=== PATIENT | female | born 1960 | race Caucasian/White ===

== ENCOUNTER 2016-07-14 06:46 | Emergency (ER) | payer BC ==
--- NOTE | 2016-07-14 06:59 | EDM.PDOC ---
ED HPI GENERAL MEDICAL PROBLEM - General Chief Complaint: General Stated Complaint: WEAK Time Seen by Provider: 07/14/16 06:59 Source of Information: Reports: Patient History Limitations: Reports: No limitations - History of Present Illness INITIAL COMMENTS - FREE TEXT/NARRATIVE: 55-year-old female attends the ED with diffuse muscle to her pain and weakness. She states she's been progressively getting worse over the last 2 weeks. This morning she went to take a PT out of the microwave essentially could hardly get her hand to work normally on the right side. She did not she did not drop teacup. She reports her proximal muscles or worse than her distal muscles. Pituitary size hips and shoulders. She cannot walk normally up the stairs. She be very careful where she sits so that she can get back of a sofa or a easy chair at such a. She reports she's "one bag ache" she had labs drawn last week at [facility] for rheumatoid arthritis and her thyroid gland function and therefore they will not be repeated today. She does not have any true active synovitis of her joints other than pain in her right knee where she has had previous surgery apparently an x-ray of the knee revealed degenerative changes. She walks is more slowly than normal. Occasional headache. Started Paroxitine on Thursday last week 10 mg once daily for possible depression. She doesn't Mrs. need for any worse in terms being lightheaded or dizzy. Her appetite remains fair her weight is stable. Onset: gradual Onset Date: 06/29/16 Duration: Week(s): (Gradually getting worse over the last 2 weeks.) Location: Reports: generalized Quality: Reports: Ache (Generalized myalgia.), Other (Weakness) Severity: moderate Improves with: Reports: None Worsens with: Reports: Movement Context: Denies: Activity, Exercise, Lifting, Sick contact, Trauma, Other Associated Symptoms: Reports: malaise, weakness. Denies: no other symptoms, confusion, chest pain, cough, cough w sputum, diaphoresis, fever/chills, headaches, loss of appetite, nausea/vomiting, rash, seizure, shortness of breath , syncope Treatments SYSTEMS ARCHITECT: Reports: Other (see below) - Related Data Allergies Allergy/AdvReac Type Severity Reaction Status Date / Time No Known Allergies Allergy Verified 07/14/16 06:57 Home Meds: Home Meds Levothyroxine Sodium [Synthroid] 125 mcg PO DAILY #30 tablet 07/14/16 [Rx] Levothyroxine [Synthroid] 88 mcg PO ACBREAKFAST 07/14/16 [History] Meloxicam 15 mg PO DAILY #12 tablet 07/14/16 [Rx] PARoxetine [Paxil] 10 mg PO DAILY 07/14/16 [History] Past Medical History Endocrine/Metabolic History: Reports: Hypothyroidism (Currently on 88 mcg of Synthroid replacement hormone daily.) - Past Surgical History Female Surgical History: Reports: Tubal ligation Social & Family History - Living Situation & Occupation Living situation: Reports: Occupation: employed ED ROS GENERAL - Review of Systems Review Of Systems: See Below Constitutional: Reports: malaise, weakness, fatigue. Denies: fever, chills, weight loss HEENT: Reports: No symptoms Respiratory: Reports: Cough (Chronic smokers cough.) Cardiovascular: Reports: Blood pressure problem, Dyspnea on exertion (States he please note easy.). Denies: Chest pain, Claudication, Edema, Lightheadedness, Orthopnea Endocrine: Reports: fatigue GI/Abdominal: Denies: Abdominal pain, Anorexia, Black stool, Bloody stool, Constipation, Diarrhea, Decreased appetite, Difficulty swallowing, Distension, Flatus, Hematemesis, Hematochezia, Melena : Reports: no symptoms Musculoskeletal: Reports: muscle pain (Generalized myalgia.), muscle stiffness Skin: Reports: no symptoms Neurological: Reports: Dizziness (Occasional) Psychiatric: Reports: Depression (Some signs and symptoms of depression.) Hematologic/Lymphatic: Reports: no symptoms Immunologic: Reports: no symptoms ( Some are more loose related to the waist feeling.) ED EXAM, GENERAL - Physical Exam Exam: See Below Exam Limited By: No limitations General Appearance: alert, WD/WN, no apparent distress Eye Exam: bilateral eye: normal inspection Ears: normal TMs Throat/Mouth: Normal inspection, Normal lips, Normal oropharynx Head: atraumatic, normocephalic Neck: normal inspection, supple, non-tender, full range of motion. No: carotid bruit, lymphadenopathy (L), lymphadenopathy (R), thyromegaly Respiratory/Chest: no respiratory distress, lungs clear, normal breath sounds, no accessory muscle use Cardiovascular: normal peripheral pulses, regular rate, rhythm, no edema, no gallop, no murmur Back Exam: normal inspection, decreased range of motion. No: CVA tenderness (L) , CVA tenderness (R) Extremities: normal inspection, normal range of motion, normal capillary refill , other Neurological: alert, oriented, CN II-XII intact, normal cognition Psychiatric: normal affect, normal mood Skin Exam: Warm, Dry, Intact, Normal color, No rash Course - Vital Signs Last Recorded V/S: Last Vital Signs Temp 36.4 C 07/14/16 06:54 Pulse 90 07/14/16 06:54 Resp 18 07/14/16 06:54 BP 152/97 H 07/14/16 06:54 Pulse Ox 97 07/14/16 06:54 - Orders/Labs/Meds Labs: Laboratory Tests 07/14/16 07/14/16 07/14/16 Range/Units 07:28 07:28 07:28 WBC 6.36 (3.98-10.04) K/mm3 RBC 4.45 (3.98-5.22) M/mm3 Hgb 13.9 (11.2-15.7) gm/L Hct 41.4 (34.1-44.9) % MCV 93.0 (79.4-94.8) fl MCH 31.2 (25.6-32.2) pg MCHC 33.6 (32.2-35.5) g/dl RDW Std Deviation 46.5 H (36.4-46.3) fL Plt Count 295 (182-369) K/mm3 MPV 9.8 (9.4-12.3) fl Neutrophils % (Manual) 47 (40-60) % Band Neutrophils % 0 (0-10) % Lymphocytes % (Manual) 45 H (20-40) % Atypical Lymphs % 0 % Monocytes % (Manual) 4 (2-10) % Eosinophils % (Manual) 4 (0.7-5.8) % Basophils % (Manual) 0 L (0.1-1.2) Platelet Estimate Adequate RBC Morph Comment Normal ESR 22 H (0-20) mm/hr Sodium 140 (136-145) mEq/L Potassium 4.3 (3.5-5.1) mEq/L Chloride 106 (98-107) mEq/L Carbon Dioxide 23 (21-32) mEq/L Anion Gap 15.3 H (5-15) BUN 23 H (7-18) mg/dL Creatinine 0.7 (0.55-1.02) mg/dL Est Cr Clr Drug Dosing 86.01 mL/min Estimated GFR (MDRD) > 60 (>60) mL/min BUN/Creatinine Ratio 32.9 H (14-18) Glucose 98 (74-106) mg/dL Calcium 8.9 (8.5-10.1) mg/dL Ionized Calcium 1.20 (1.12-1.32) mmol/L Magnesium 1.9 (1.8-2.4) mg/dl Total Bilirubin 0.2 (0.2-1.0) mg/dL AST 11 L (15-37) U/L ALT 19 (14-59) U/L Alkaline Phosphatase 66 (46-116) U/L Creatine Kinase 32 (26-192) U/L C-Reactive Protein 0.3 (<1.0) mg/dL Total Protein 7.2 (6.4-8.2) g/dl Albumin 3.7 (3.4-5.0) g/dl Globulin 3.5 gm/dL Albumin/Globulin Ratio 1.1 (1-2) TSH 3rd Generation (0.358-3.74) uIU/mL Urine Color (Yellow) Urine Appearance (Clear) Urine pH (5.0-8.0) Ur Specific [place] (1.005-1.030) Urine Protein (Negative) Urine Glucose (UA) (Negative) Urine Ketones (Negative) Urine Occult Blood (Negative) Urine Nitrite (Negative) Urine Bilirubin (Negative) Urine Urobilinogen (0.2-1.0) Ur Leukocyte Esterase (Negative) Urine RBC (0-5) /hpf Urine WBC (0-5) /hpf Ur Squamous Epith Cells (0-5) /hpf Urine Bacteria (FEW) /hpf Urine Mucus (FEW) /hpf 07/14/16 07/14/16 Range/Units 07:28 07:55 WBC (3.98-10.04) K/mm3 RBC (3.98-5.22) M/mm3 Hgb (11.2-15.7) gm/L Hct (34.1-44.9) % MCV (79.4-94.8) fl MCH (25.6-32.2) pg MCHC (32.2-35.5) g/dl RDW Std Deviation (36.4-46.3) fL Plt Count (182-369) K/mm3 MPV (9.4-12.3) fl Neutrophils % (Manual) (40-60) % Band Neutrophils % (0-10) % Lymphocytes % (Manual) (20-40) % Atypical Lymphs % % Monocytes % (Manual) (2-10) % Eosinophils % (Manual) (0.7-5.8) % Basophils % (Manual) (0.1-1.2) Platelet Estimate RBC Morph Comment ESR (0-20) mm/hr Sodium (136-145) mEq/L Potassium (3.5-5.1) mEq/L Chloride (98-107) mEq/L Carbon Dioxide (21-32) mEq/L Anion Gap (5-15) BUN (7-18) mg/dL Creatinine (0.55-1.02) mg/dL Est Cr Clr Drug Dosing mL/min Estimated GFR (MDRD) (>60) mL/min BUN/Creatinine Ratio (14-18) Glucose (74-106) mg/dL Calcium (8.5-10.1) mg/dL Ionized Calcium (1.12-1.32) mmol/L Magnesium (1.8-2.4) mg/dl Total Bilirubin (0.2-1.0) mg/dL AST (15-37) U/L ALT (14-59) U/L Alkaline Phosphatase (46-116) U/L Creatine Kinase (26-192) U/L C-Reactive Protein (<1.0) mg/dL Total Protein (6.4-8.2) g/dl Albumin (3.4-5.0) g/dl Globulin gm/dL Albumin/Globulin Ratio (1-2) TSH 3rd Generation 4.352 H (0.358-3.74) uIU/mL Urine Color Yellow (Yellow) Urine Appearance Clear (Clear) Urine pH 5.5 (5.0-8.0) Ur Specific [place] > or = 1.030 (1.005-1.030) Urine Protein Negative (Negative) Urine Glucose (UA) Negative (Negative) Urine Ketones Negative (Negative) Urine Occult Blood Trace-lysed H (Negative) Urine Nitrite Negative (Negative) Urine Bilirubin Negative (Negative) Urine Urobilinogen 0.2 (0.2-1.0) Ur Leukocyte Esterase Negative (Negative) Urine RBC 5-10 H (0-5) /hpf Urine WBC 0-5 (0-5) /hpf Ur Squamous Epith Cells 0-5 (0-5) /hpf Urine Bacteria Rare (FEW) /hpf Urine Mucus Not seen (FEW) /hpf - Radiology Interpretation Free Text/Narrative:: 55-year-old female presents the ED for evaluation of generalized weakness and myalgia has been gradually getting worse over the last 2 weeks. She has no true active synovitis of any of her joints. Aching pain in the proximal muscles more so than the distal muscles suggesting polymyalgia component. She noticed particular weakness of her right hand this morning while trying to take a cup of tea out of the microwave. Examination reveals full range of motion of all 4 limbs but tenderness to palpation of the deep musculature the quadriceps and deltoids. Neuro exam is normal. No rashes were evident to suggest dermatomyositis. Plan routine labs with the addition of a total CPK , TSH, and sedimentation rate and CRP. - Re-Assessments/Exams Free Text/Narrative Re-Assessment/Exam: 07/14/16 08:31 labs are back. White count is normal at 6.36 with a 47% count no bands. Hemoglobin 13.9 hematocrit 41.4 is 295,000. Sedimentation rate returned at 22. Chemistry shows sodium 140 potassium of 4.3 chloride 16 bicarbonate of 23. Anion gap is 15.3 BUN is mildly elevated at 23 ionized calcium is 1.20. His CA TSH is mildly elevated at 4.352. Plan I will increase her thyroid supplement to 25 mcg Departure - Departure Time of Disposition: 08:40 Disposition: Home, Self-Care 01 Condition: fair Clinical Impression: Polymyalgia, Hypothyroidism Fatigue Qualifiers: Fatigue type: unspecified Qualified Code(s): R53.83 - Other fatigue Prescriptions: Levothyroxine Sodium [Synthroid] 125 mcg PO DAILY #30 tablet Meloxicam 15 mg PO DAILY #12 tablet Forms: ED Department Discharge Additional Instructions: Evaluation in the emergency room today in regards to generalized aches and pains but particularly noted weakness and pain in the proximal muscles(upper legs thighs and shoulders.) Lab work was done to see if there was any convincing evidence ,laboratory kline ,of polymyalgia rheumatica. Normal CPK and a sedimentation rate of only 22 are against this diagnosis. However lab work did identify that the thyroid gland supplementation is not adequate at this time. TSH today was 4.35 and on supplementation it should be around 1.5-2. Therefore I advise increasing your thyroid hormone supplement Synthroid to 125 mcg daily. You are currently on 88 mcg tablets and you can take one half of those daily until they are gone and then fill the prescription for the 125 mcg dosage. A followup TSH should be done in about 8 weeks' time to make sure that it is getting down to around the 2.0 level. I'm also going to add anti- inflammatory meloxicam 15 mg once daily for the next 12 days to relieve pain and inflammation in your muscles until the thyroid replacement medication becomes more therapeutic. If after 2-3 weeks of increased thyroid medication you 're not feeling any better I would give some thought to a short course of prednisone to see if it made a difference in terms of relieving inflammation in her proximal muscles. Also of course followup with her normal care provider in regards to the labs that were drawn last week looking for connective tissue inflammation.
[2016-07-14 09:49] VITALS: BP 142/88
== END 2016-07-14 08:55 | disposition home or self-care (01) ==
LOC: JD.ED 06:46
DX: M35.3 Polymyalgia rheumatica (principal); E03.9 Hypothyroidism, unspecified; R53.83 Other fatigue; Z79.899 Other long term (current) drug therapy; Z98.51 Tubal ligation status
CPT/HCPCS: 36415; 80053; 81001; 82330; 82550; 83735; 84443; 85025; 85652; 86140; 99284; 99285

== ENCOUNTER 2018-01-07 06:37 | Emergency (ER) | payer BC ==
[2018-01-07 06:45] VITALS: BP 150/95
[2018-01-07] MEDS ORDERED: Ondansetron 4 MG/2 ML SDV IVPUSH ONE (06:59)
[2018-01-07] MEDS ORDERED: Sodium Chloride 0.9% 10 ML Syringe FLUSH PRN ×2 (06:59→08:03)
[2018-01-07] MEDS ORDERED: Sodium Chloride 0.9% 1,000 ML IV STA (06:59)
[2018-01-07] MEDS ORDERED: HYDROmorphone 0.5 MG/0.5 ML SYRINGE IVPUSH ONE (07:02)
--- NOTE | 2018-01-07 07:07 | EDM.PDOC ---
ED HPI GENERAL MEDICAL PROBLEM - General Chief Complaint: Abdominal Pain Stated Complaint: ABDOMINAL PAIN Time Seen by Provider: 01/07/18 06:55 Source of Information: Reports: Patient History Limitations: Reports: No Limitations - History of Present Illness INITIAL COMMENTS - FREE TEXT/NARRATIVE: The patient presents with abdominal pain, nausea, and vomiting. This started yesterday. She has no fever but she does have chills. She had a colonoscopy last in [place]. They removed 2 polyps and she had diverticulosis according to her . She has no chest pain, cough or shortness of breath. She has no dysuria. She does have some diarrhea. She still has her gallbladder and appendix. Onset: Gradual Duration: Day(s): (Yesterday) Location: Reports: Abdomen Quality: Reports: Sharp Severity: Moderate Improves with: Reports: None Worsens with: Reports: None Associated Symptoms: Reports: Fever/Chills, Nausea/Vomiting. Denies: Chest Pain , Headaches, Shortness of Breath Left Abdomen Pain Score (Numeric/FACES): 9 - Related Data Allergies Allergy/AdvReac Type Severity Reaction Status Date / Time No Known Allergies Allergy Verified 01/07/18 06:46 Home Meds: Home Meds Levothyroxine [Synthroid] 112 mcg PO ACBREAKFAST 07/14/16 [History] Amitriptyline [Elavil] 10 mg pe PO DAILY 01/07/18 [History] Hydrocodone/Acetaminophen [Hydrocodon-Acetaminophen 5-325] 1 - 2 each PO Q6HR PRN #20 tablet 01/07/18 [Rx] Ondansetron [Zofran ODT] 4 mg PO Q6H PRN #20 tab.dis 01/07/18 [Rx] Past Medical History HEENT History: Reports: Impaired Vision Other HEENT History: wears glasses Gastrointestinal History: Reports: Colon Polyp, Diverticulosis [employer]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: Neurological History: Reports: Migraines Endocrine/Metabolic History: Reports: Hypothyroidism - Past Surgical History GI Surgical History: Reports: Colonoscopy Female Surgical History: Reports: Tubal Ligation Musculoskeletal Surgical History: Reports: Knee Replacement Social & Family History - Tobacco Use Smoking Status *Q: Current Every Day Smoker Years of Tobacco use: 30 Packs/Tins Daily: 0.5 - Caffeine Use Caffeine Use: Reports: None - Recreational Drug Use Recreational Drug Use: No - Living Situation & Occupation Living situation: Reports: Occupation: Employed ED ROS GENERAL - Review of Systems Review Of Systems: See Below Constitutional: Reports: Chills. Denies: Fever HEENT: Reports: No Symptoms Respiratory: Reports: No Symptoms Cardiovascular: Reports: No Symptoms Endocrine: Reports: No Symptoms GI/Abdominal: Reports: Abdominal Pain, Diarrhea, Nausea, Vomiting : Reports: No Symptoms Musculoskeletal: Reports: No Symptoms Skin: Reports: No Symptoms ED EXAM, GI/ABD - Physical Exam Exam: See Below Exam Limited By: No Limitations General Appearance: Alert, No Apparent Distress Ears: Normal External Exam Nose: Normal Inspection Head: Atraumatic, Normocephalic Neck: Normal Inspection Respiratory/Chest: No Respiratory Distress, Lungs Clear, Normal Breath Sounds Cardiovascular: Regular Rate, Rhythm, No Edema, No Murmur GI/Abdominal Exam: Soft, No Organomegaly, No Mass, Tender (Moderate generalized tenderness worse on the left) Extremities: Normal Inspection Course - Vital Signs Last Recorded V/S: Last Vital Signs Temp 96.7 F 01/07/18 06:41 Pulse 81 01/07/18 06:41 Resp 18 01/07/18 06:41 BP 150/95 H 01/07/18 06:41 Pulse Ox 97 01/07/18 06:41 - Orders/Labs/Meds Orders: Active Orders 24 hr Category Date Time Status Peripheral IV Care [RC] . DIRECTED Care 01/07/18 06:59 Active Abdomen Pelvis w Cont [CT] Stat Exams 01/07/18 06:59 Taken Sodium Chloride 0.9% [Saline Flush] Med 01/07/18 06:59 Active 10 ml FLUSH ASDIRECTED PRN Sodium Chloride 0.9% [Saline Flush] Med 01/07/18 08:03 Active 10 ml FLUSH ONETIME PRN ED Antiemetic Medication Reflex [OM.PC] Stat Oth 01/07/18 06:59 Ordered Peripheral IV Insertion Adult [OM.PC] Stat Oth 01/07/18 06:59 Ordered Medication Orders Sodium Chloride (Saline Flush) 10 ml FLUSH ASDIRECTED PRN PRN Reason: Keep Vein Open Last Admin: 01/07/18 07:18 Dose: 10 ml Sodium Chloride (Saline Flush) 10 ml FLUSH ONETIME PRN PRN Reason: IV FLUSH Last Admin: 01/07/18 09:00 Dose: 10 ml Labs: Laboratory Tests 01/07/18 01/07/18 01/07/18 Range/Units 06:46 06:46 08:05 WBC 6.24 (3.98-10.04) K/mm3 RBC 4.82 (3.98-5.22) M/mm3 Hgb 14.6 (11.2-15.7) gm/L Hct 43.7 (34.1-44.9) % MCV 90.7 (79.4-94.8) fl MCH 30.3 (25.6-32.2) pg MCHC 33.4 (32.2-35.5) g/dl RDW Std Deviation 46.9 H (36.4-46.3) fL Plt Count 321 (182-369) K/mm3 MPV 9.8 (9.4-12.3) fl Neut % (Auto) 54.1 (34.0-71.1) % Lymph % (Auto) 35.7 (19.3-51.7) % [place] % (Auto) 6.9 (4.7-12.5) % Eos % (Auto) 3.0 (0.7-5.8) Baso % (Auto) 0.3 (0.1-1.2) % Neut # (Auto) 3.37 (1.56-6.13) K/mm3 Lymph # (Auto) 2.23 (1.18-3.74) K/mm3 Potter # (Auto) 0.43 H (0.24-0.36) K/mm3 Eos # (Auto) 0.19 (0.04-0.36) K/mm3 Baso # (Auto) 0.02 (0.01-0.08) K/mm3 Sodium 139 (136-145) mEq/L Potassium 4.4 (3.5-5.1) mEq/L Chloride 106 (98-107) mEq/L Carbon Dioxide 24 (21-32) mEq/L Anion Gap 13.4 (5-15) BUN 16 (7-18) mg/dL Creatinine 0.8 (0.55-1.02) mg/dL Est Cr Clr Drug Dosing 73.51 mL/min Estimated GFR (MDRD) > 60 (>60) mL/min BUN/Creatinine Ratio 20.0 H (14-18) Glucose 96 (74-106) mg/dL Calcium 9.1 (8.5-10.1) mg/dL Total Bilirubin 0.2 (0.2-1.0) mg/dL AST 20 (15-37) U/L ALT 29 (14-59) U/L Alkaline Phosphatase 87 (46-116) U/L Total Protein 7.7 (6.4-8.2) g/dl Albumin 3.7 (3.4-5.0) g/dl Globulin 4.0 gm/dL Albumin/Globulin Ratio 0.9 L (1-2) Lipase 139 (73-393) U/L Urine Color Yellow (Yellow) Urine Appearance Clear (Clear) Urine pH 6.0 (5.0-8.0) Ur Specific [place] 1.020 (1.005-1.030) Urine Protein Negative (Negative) Urine Glucose (UA) Negative (Negative) Urine Ketones Negative (Negative) Urine Occult Blood Negative (Negative) Urine Nitrite Negative (Negative) Urine Bilirubin Negative (Negative) Urine Urobilinogen 0.2 (0.2-1.0) Ur Leukocyte Esterase Trace H (Negative) Urine RBC Not seen (0-5) /hpf Urine WBC 0-5 (0-5) /hpf Ur Epithelial Cells 0-5 (0-5) /hpf Urine Bacteria Few (FEW) /hpf Urine Mucus Few (FEW) /hpf Meds: Medications Generic Name Dose Route Start Last Admin Trade Name Iliana PRN Reason Stop Dose Admin Sodium Chloride 10 ml 01/07/18 06:59 01/07/18 07:18 Saline Flush FLUSH 10 ml ASDIRECTED PRN Administration Keep Vein Open Sodium Chloride 10 ml 01/07/18 08:03 01/07/18 09:00 Saline Flush FLUSH 10 ml ONETIME PRN Administration IV FLUSH Discontinued Medications Generic Name Dose Route Start Last Admin Trade Name Freq PRN Reason Stop Dose Admin Diatrizoate Meglum/Diatrizoate Sod 120 ml 01/07/18 08:03 01/07/18 08:59 Gastrografin 37% PO 01/07/18 08:04 90 ml ONETIME ONE Administration Hydromorphone HCl 0.5 mg 01/07/18 07:02 01/07/18 07:18 Dilaudid IVPUSH 01/07/18 07:03 0.5 mg ONETIME ONE Administration Sodium Chloride 1,000 mls @ 1,000 mls/hr 01/07/18 06:59 01/07/18 07:18 Normal Saline IV 01/07/18 07:58 1,000 mls/hr .BOLUS STA Administration Iopamidol 150 ml 01/07/18 08:03 01/07/18 08:59 Isovue-300 (61%) IVPUSH 01/07/18 08:04 125 ml ONETIME ONE Administration Ondansetron HCl 4 mg 01/07/18 06:59 01/07/18 07:18 Zofran IVPUSH 01/07/18 07:00 4 mg ONETIME ONE Administration - Re-Assessments/Exams Free Text/Narrative Re-Assessment/Exam: 01/07/18 07:08 I ordered an IV NS 1L bolus, zofran 4mg IV, dilaudid 0.5mg IV, labs, UA and a CT of her abdomen and pelvis. 01/07/18 10:14 Her CBC and CMP look good. Her UA shows no UTI. Her CT shows 2 cysts in the liver and nothing acute. She just finished macrobid for a UTI yesterday. I will get some stool studies. She says she cannot give us one now but I will send the cups for a sample later. I will give her some zofran and hydrocodone for pain. Departure - Departure Time of Disposition: 10:15 Disposition: Home, Self-Care 01 Condition: Good Clinical Impression: Gastroenteritis Diarrhea Qualifiers: Diarrhea type: unspecified type Qualified Code(s): R19.7 - Diarrhea, unspecified Abdominal pain Qualifiers: Abdominal location: generalized Qualified Code(s): R10.84 - Generalized abdominal pain Vomiting Qualifiers: Vomiting type: unspecified Vomiting Intractability: non-intractable Nausea presence: with nausea Qualified Code(s): R11.2 - Nausea with vomiting, unspecified - Discharge Information *PRESCRIPTION DRUG MONITORING PROGRAM REVIEWED*: No *COPY OF PRESCRIPTION DRUG MONITORING REPORT IN PATIENT CJ: No Prescriptions: Hydrocodone/Acetaminophen [Hydrocodon-Acetaminophen 5-325] 1 - 2 each PO Q6HR PRN #20 tablet PRN Reason: Pain Ondansetron [Zofran ODT] 4 mg PO Q6H PRN #20 tab.dis PRN Reason: Nausea\vomiting Referrals: Lolis Taveras PA-C [Primary Care Provider] - 1 Week Forms: ED Department Discharge, ED Return to Work/School Form Additional Instructions: Drink plenty of fluids. Start with clear liquids today and advance as tolerated to a bland diet and then to a normal diet. Take the zofran every 6 hours as needed for nausea or vomiting. Take the hydrocodone as needed for pain. Please return if you are worse. Bring the specimen cups back so I can check your stool for clostridium difficil and other bacteria. - My Orders Last 24 Hours: My Active Orders 01/07/18 06:59 Peripheral IV Care [RC] . DIRECTED Abdomen Pelvis w Cont [CT] Stat Sodium Chloride 0.9% [Saline Flush] 10 ml FLUSH ASDIRECTED PRN ED Antiemetic Medication Reflex [OM.PC] Stat Peripheral IV Insertion Adult [OM.PC] Stat 01/07/18 08:03 Sodium Chloride 0.9% [Saline Flush] 10 ml FLUSH ONETIME PRN - Assessment/Plan Last 24 Hours: My Active Orders 01/07/18 06:59 Peripheral IV Care [RC] . DIRECTED Abdomen Pelvis w Cont [CT] Stat Sodium Chloride 0.9% [Saline Flush] 10 ml FLUSH ASDIRECTED PRN ED Antiemetic Medication Reflex [OM.PC] Stat Peripheral IV Insertion Adult [OM.PC] Stat 01/07/18 08:03 Sodium Chloride 0.9% [Saline Flush] 10 ml FLUSH ONETIME PRN
[2018-01-07] MEDS ORDERED: Diatrizoate Meglumine/Diatrizoate Sodium 37% 120 ML Bottle PO ONE (08:03)
[2018-01-07] MEDS ORDERED: Iopamidol 612 MG/ML 150 ML Bottle IVPUSH ONE (08:03)
--- NOTE | 2018-01-07 10:14 | CT ---
CT abdomen and pelvis Technique: Multiple axial sections were obtained from above the dome of the diaphragm inferiorly through the pubic symphysis. Intravenous and oral contrast was given. Delayed images were obtained through the bladder. Comparison: No prior abdominal imaging. Findings: Visualized lung bases show nothing acute. Two low-density lesions are seen within the anterior liver. These have indeterminant Hounsfield unit measurements with both measuring less than 1 cm. No additional abnormality is appreciated within the liver. Spleen appears within normal limits. Adrenal glands show no nodule. Gallbladder contains no calcified gallstones. Kidneys show symmetric contrast enhancement. No hydronephrosis or mass is seen. Pancreas is within normal limits. Aorta shows mild atherosclerotic change without aneurysm. Appendix is seen which is normal in size. No pelvic mass or adenopathy is seen. Delayed images show contrast within distal ureters and within the bladder. No free fluid or inflammatory change is seen. Minimal colonic diverticulosis is noted without diverticulitis. Bone window settings were reviewed which show minimal scattered degenerative change within the spine. Impression: 1. Two small low-density lesions are seen within the liver which have nonspecific Hounsfield unit measurements but most likely due to 2 small and incidental cysts. 2. Other incidental findings. Nothing acute is seen on CT study of the abdomen and pelvis. Diagnostic code #2
== END 2018-01-07 10:56 | disposition home or self-care (01) ==
LOC: JD.ED 06:37
DX: K52.9 Noninfective gastroenteritis and colitis, unspecified (principal); R10.84 Generalized abdominal pain; E03.9 Hypothyroidism, unspecified; F17.210 Nicotine dependence, cigarettes, uncomplicated; Z79.899 Other long term (current) drug therapy
CPT/HCPCS: 36415; 74177; 80053; 81001; 83690; 85025; 87046; 87427; 87493; 96361; 96374; 96375; 99284; J1170; J2405; J7040; J7050; Q9963; Q9967